=== PATIENT | male | born 1985 | race Caucasian/White ===

== ENCOUNTER 2018-04-11 07:35 | Emergency (ER) | payer MEDICAID ==
[~2018-04-11] VITALS: Ht 188 cm; Wt 80.4 kg
[2018-04-11] MEDS ORDERED: SODIUM CHLORIDE 0.9% 1,000 ML IV ONE ×2 (08:06→11:00)
[2018-04-11 09:06] LABS: BASOPHILS % 0.4 % (0.0-2.0); EOSINOPHILS % 1.3 % (0.0-5.0); HEMATOCRIT. 50.7 % (42.0-52.0); HEMOGLOBIN. 17.4 g/dL (14.0-18.0); LYMPHOCYTES % 23.5 % (20.0-50.0); MEAN CORPUSCULAR HEMOGLOBIN 28.6 pg (28.0-32.0); MEAN CORPUSCULAR VOLUME 83.2 fL (80.0-94.0); MEAN PLATELET VOLUME 8.1 fl (7.4-10.4); MONOCYTES % 9.7 % (2.0-8.0); NEUTROPHILS % 65.1 % (40.0-76.0); PLATELET 302 x1000/uL (130-400); RED CELL DISTRIBUTION WIDTH 14.3 % (11.6-14.6)
[2018-04-11 09:16] LABS: PROTHROMBIN TIME 9.9 sec (9.1-11.1)
[2018-04-11 10:05] LABS: CHLORIDE 111 mEq/L (98-107)
[2018-04-11] MEDS ORDERED: AZITHROMYCIN 500 MG TABLET PO ONE (10:45)
[2018-04-11] MEDS ORDERED: CEFTRIAXONE SODIUM 250 MG/VIAL IM ONE (10:45)
[2018-04-11] MEDS ORDERED: IOHEXOL-300 100 ML BOTTLE ONE (11:48)
[2018-04-11] MEDS ORDERED: LIDOCAINE HCL 1% 20ML VIAL (Pyxis) INJ INFIL ONE (12:30)
[2018-04-11] MEDS ORDERED: LIDOCAINE HCL/PF 1% 10 MG/ML 5ML VIAL IJ NR (12:54)
[2018-04-11 13:07] LABS: CLARITY URINE CLEAR (CLEAR); COLOR URINE YELLOW (YELLOW); KETONES URINE TRACE (NEGATIVE); LEUKOCYTE ESTERASE URINE NEGATIVE (NEGATIVE); NITRITE URINE NEGATIVE (NEGATIVE); OCCULT BLOOD URINE NEGATIVE (NEGATIVE); PH URINE 5.5 (4.5-8.0); PROTEIN URINE NEGATIVE (NEGATIVE); SPECIFIC GRAVITY URINE 1.066 (1.005-1.030)
[2018-04-11 13:20] VITALS: BP 116/71
[2018-04-13 04:12] LABS: CHLAMYDIA TRACHOMATIS NAA Negative (Negative); NEISSERIA GONORRHOEAE NAA Negative (Negative)
== END 2018-04-11 14:32 | disposition home or self-care (01) ==
LOC: ER 07:35
DX: N45.3 Epididymo-orchitis (principal); R65.10 Systemic inflammatory response syndrome (SIRS) of non-infectious origin without acute organ dysfunction; R00.0 Tachycardia, unspecified; Z90.49 Acquired absence of other specified parts of digestive tract; Z88.0 Allergy status to penicillin
CPT/HCPCS: 36415; 74177; 76870; 80053; 81003; 83605; 85025; 85610; 87040; 87086; 87491; 87591; 93005; 93976; 96372; 99285; J0696; J3490; J7030; Q9967; Z7610

== ENCOUNTER 2020-03-26 20:17 | Emergency (ER) | payer BC, MEDICAID ==
[~2020-03-26] VITALS: Ht 185.4 cm; Wt 89.0 kg
[2020-03-26] MEDS ORDERED: BUPIVACAINE HCL 0.5% (5MG/ML) 50ML IR ONE (22:15)
[2020-03-26] MEDS ORDERED: TERBUTALINE SULFATE 1MG/ML VIAL SUBCUT ONE ×2 (22:30)
[2020-03-26] MEDS ORDERED: MORPHINE SULFATE 4 MG/ML CPJ (NOT FOR IM USE) IV STA (22:36)
[2020-03-26] MEDS ORDERED: ONDANSETRON HCL 4MG/2ML INJ IV STA (22:36)
[2020-03-26] MEDS ORDERED: PHENYLEPHRINE IV NR (22:45)
[2020-03-26] MEDS ORDERED: SODIUM CHLORIDE 0.9% IV NR (22:45)
[2020-03-26] MEDS ORDERED: TERBUTALINE SULFATE 1MG/ML VIAL SUBCUT NR (22:45)
[2020-03-26] MEDS: TERBUTALINE SULFATE 1MG/ML VIAL SUBCUT SCH ×2 (23:09→23:50)
[2020-03-27] MEDS ORDERED: LIDOCAINE/EPINEPHR/TETRACAINE 3ML TP ONE (01:00)
[2020-03-27] MEDS ORDERED: LIDOCAINE 2% JELLY PREFILLED SYRINGE MM NR (01:15)
[2020-03-27 01:42] VITALS: BP 125/88
== END 2020-03-27 01:50 | disposition home or self-care (01) ==
LOC: ER 20:17
DX: N48.30 Priapism, unspecified (principal); Z90.49 Acquired absence of other specified parts of digestive tract; Z88.0 Allergy status to penicillin
CPT/HCPCS: 96372; 96374; 96375; 99284; J2270; J2370; J2405; J3105; J3490